=== PATIENT | female | born 1970 | race Caucasian/White ===

== ENCOUNTER → 2019-11-02 | Outpatient (CLI) | payer BC ==
[~2019-11-02] MED LIST: DAPA10TA PO; HYDROCHLOROTH12.5 MG PO; LEVE250T5 PO; LIOT0.5P PO; LOSA50TA14 PO; MELO7.5T5 PO; METH10TA6 PO
== END | disposition home or self-care (01) ==
LOC: CFH 15:38
PROVIDERS: ATTEND Internal Medicine Cardiovascular Disease
DX: Z01.818 Encounter for other preprocedural examination (principal); I36.1 Nonrheumatic tricuspid (valve) insufficiency; I50.9 Heart failure, unspecified
CPT/HCPCS: 93306

== ENCOUNTER → 2020-07-22 | Outpatient (CLI) | payer BC | END | disposition home or self-care (01) | LOC: RAD 09:37 | PROVIDERS: ATTEND Internal Medicine Endocrinology, Diabetes & Metabolism | DX: E04.2 Nontoxic multinodular goiter (principal); E03.9 Hypothyroidism, unspecified | CPT/HCPCS: 78013; A9516 ==